=== PATIENT | female | born 1930 | race Caucasian/White ===

== ENCOUNTER 2021-06-07 18:31 | Emergency (ER) | payer MEDICARE ==
[~2021-06-07] VITALS: Ht 175.3 cm; Wt 93.0 kg
[2021-06-07] MEDS ORDERED: VITAMIN D3 PO (19:27)
[2021-06-07] MEDS ORDERED: QUET50TA PO (19:27)
[2021-06-07] MEDS ORDERED: SERT50TA PO (19:27)
[2021-06-07] MEDS ORDERED: MEMA1CAP3 PO (19:27)
[2021-06-07] MEDS ORDERED: TAMS-3 PO (19:27)
[2021-06-07] MEDS ORDERED: SIMV-49 PO (19:27)
[2021-06-07 20:26] LABS: HEMATOCRIT 39.3 % (31.2-41.9); MEAN CORPUSCULAR HEMOGLOBIN 29.6 uug (24.7-32.8); MEAN CORPUSCULAR VOLUME 90.3 fL (75.5-95.3); PLATELET COUNT (AUTO) 257 K/uL (179-408)
[2021-06-07 20:33] LABS: CARBON DIOXIDE 27 mmol/L (21-32); CHLORIDE 106 mmol/L (98-107); CREATININE 0.8 mg/dL (0.6-1.3); GLUCOSE 119 mg/dL (74-106); POTASSIUM 4.1 mmol/L (3.5-5.1); UREA NITROGEN, BLOOD 22 mg/dL (7-18)
[2021-06-07 20:38] LABS: ALANINE AMINOTRANSFERASE 20 U/L (14-59); ALKALINE PHOSPHATASE 85 U/L (50-136); ASPARTATE AMINOTRANSFERASE 14 U/L (15-37); BILIRUBIN,DIRECT 0.1 mg/dL (0.0-0.2); BILIRUBIN,TOTAL 0.3 mg/dL (0.2-1.0); TOTAL PROTEIN, SERUM 6.8 g/dL (6.4-8.2)
--- NOTE | 2021-06-07 21:30 | NUR ---
Patient discharged to home in stable condition. Written and verbal after care instructions given. Patient verbalizes understanding of instructions. Stressed follow up or return to ER for worsening s/s.
[2021-06-07 22:11] VITALS: BP 146/104
== END 2021-06-07 22:13 ==
LOC: ER 18:37
DX: N93.8 Other specified abnormal uterine and vaginal bleeding (principal); K59.00 Constipation, unspecified; E78.5 Hyperlipidemia, unspecified; F03.90 Unspecified dementia, unspecified severity, without behavioral disturbance, psychotic disturbance, mood disturbance, and anxiety; F32.A Depression, unspecified; Z79.899 Other long term (current) drug therapy
CPT/HCPCS: 36415; 85025; 85730; A4663

== ENCOUNTER 2021-08-06 20:16 | Emergency (ER) | payer MEDICARE ==
[~2021-08-06] VITALS: Ht 175.3 cm; Wt 108.9 kg
[~2021-08-06 20:16] MED LIST: MEMA1CAP3 PO; QUET50TA PO; SERT50TA PO; SIMV-49 PO; TAMS-3 PO; VITAMIN D3 PO
[2021-08-06] MEDS ORDERED: CALCIUM CHLORIDE 1 GM/10 ML DISP.SYRIN IV ONE (20:18)
[2021-08-06] MEDS ORDERED: EPINEPHRINE 1:10,000 1 MG/10 ML DISP.SYRIN IV ONE (20:18)
[2021-08-06] MEDS ORDERED: SODIUM BICARBONATE 8.4% 50 MEQ/50 ML DISP.SYRIN IV ONE ×2 (20:18→21:33)
[2021-08-06] MEDS ORDERED: ONDANSETRON 4 MG/2 ML VIAL IV ONE (20:30)
[2021-08-06] MEDS ORDERED: IV NORMAL SALINE 1000 ML BAG IV ONE (20:30)
--- NOTE | 2021-08-06 20:38 | NUR ---
Pt BIB ambulance for shortness of breath, pt in respiratory distress, skin is mottled. Dr. Barrera aware.
--- NOTE | 2021-08-06 20:40 | NUR ---
Nasogastric tube inserted by dr. marks
[2021-08-06 20:52] LABS: HEMATOCRIT 45.4 % (31.2-41.9); MEAN CORPUSCULAR HEMOGLOBIN 28.4 uug (24.7-32.8); MEAN CORPUSCULAR VOLUME 89.2 fL (75.5-95.3); PLATELET COUNT (AUTO) 509 K/uL (179-408)
[2021-08-06 20:58] LABS: CARBON DIOXIDE 18 mmol/L (21-32); CHLORIDE 96 mmol/L (98-107); CREATININE 1.6 mg/dL (0.6-1.3); GLUCOSE 291 mg/dL (74-106); POTASSIUM 4.7 mmol/L (3.5-5.1); UREA NITROGEN, BLOOD 27 mg/dL (7-18)
[2021-08-06 21:00] LABS: ABG HCO3 13.8 mmol/L; ABG PCO2 57.8 mmHg (35.0-45.0); ABG PH 6.995 (7.350-7.450); ABG PO2 90.1 mmHg (75.0-100.0); ABG SITE LEFT RADIAL; ABG TOTAL HEMOGLOBIN 14.4 G/dL (12.0-16.0); COHb 1.5 % (0.5-1.5); MetHb 0.3 % (0.0-1.5); O2Hb 90.6 % (94.0-97.0)
[2021-08-06] MEDS ORDERED: NOREPINEPHRINE BITARTRATE 4 MG/4 ML VIAL IV ONE (21:05)
--- NOTE | 2021-08-06 21:09 | NUR ---
Code blue was initiated
[2021-08-06 21:13] LABS: ALANINE AMINOTRANSFERASE 28 U/L (14-59); ALKALINE PHOSPHATASE 164 U/L (50-136); ASPARTATE AMINOTRANSFERASE 26 U/L (15-37); BILIRUBIN,DIRECT 0.2 mg/dL (0.0-0.2); BILIRUBIN,TOTAL 0.5 mg/dL (0.2-1.0); TOTAL PROTEIN, SERUM 8.6 g/dL (6.4-8.2)
--- NOTE | 2021-08-06 21:15 | NUR ---
Levophed infusioin was started at 0.3 mcg/kg/min.
--- NOTE | 2021-08-06 21:15 | NUR ---
Pt was intubated by, Dr. Barrera
--- NOTE | 2021-08-06 21:33 | NUR ---
End of the code, time of [id number]
--- NOTE | 2021-08-06 21:52 | NUR ---
Called [facility] to report cardiac
--- NOTE | 2021-08-06 21:59 | NUR ---
[facility] will not be continuing with the report, referral number [id number]
--- NOTE | 2021-08-06 22:26 | NUR ---
family at bedside
--- NOTE | 2021-08-06 22:44 | NUR ---
Called Area Attendant and spoke with [place], family can continue with mortuary.
--- NOTE | 2021-08-06 22:54 | NUR ---
Spoke with Pt's son, Bernabe Bae, phone number is [phone]
--- NOTE | 2021-08-06 23:30 | NUR ---
Post mortum care was provided
--- NOTE | 2021-08-06 23:58 | NUR ---
Pt transported down to [facility]
[2021-08-07] MEDS ORDERED: NOREPINEPHRINE BITARTRATE 8 MG in IV DEXTROSE 5% 250 ML IV ONE (06:30)
[2021-08-07 06:36] VITALS: BP 0/0
== END 2021-08-06 23:58 ==
LOC: ER 20:17
DX: A41.9 Sepsis, unspecified organism (principal); R65.21 Severe sepsis with septic shock; I46.9 Cardiac arrest, cause unspecified; E87.2 Acidosis; R00.0 Tachycardia, unspecified; D75.839 Thrombocytosis, unspecified; R14.0 Abdominal distension (gaseous); F03.90 Unspecified dementia, unspecified severity, without behavioral disturbance, psychotic disturbance, mood disturbance, and anxiety
CPT/HCPCS: 31500; 36415; 36556; 36600; 43752; 80048; 80076; 83605; 83880; 84145; 84484; 85025; 85730; 87040 ×2; 92950; 93005; 99291; 99292; J0171; J3490 ×3; J7060; 70030-TC; A4217; A4663; J7030